=== PATIENT | male | born 1955 | race African-American/Black ===

== ENCOUNTER 2016-08-14 07:41 | Inpatient (IN) | payer MEDICARE, OTHER ==
[~2016-08-14] VITALS: Ht 185.4 cm; Wt 93.2 kg
[~2016-08-14 07:41] MED LIST: AMLO5TAB2 PO; ASPI-482 PO; LANS30TA6 PO; OMEP20CA9 PO; SPIR50TA2 PO; SUCR1TAB PO; TRAM50TA PO; TRAZ50TA15 PO
--- NOTE | 2016-08-14 08:02 | PHYS DOC ---
Past Medical History Past Medical History: Alcoholism, Bipolar, Hypertension, Liver Disease Additional Past Medical Histor: ETOH ABUSE Past Surgical History: Cholecystectomy Additional Past Surgical Histo: RIGHT KNEE ARTHROSCOPY, BACK SURGERY Alcohol Use: Heavy Drug Use: None Adult General Chief Complaint Chief Complaint: CHEST PAIN HPI HPI Patient is a 60 year old male presents to the emergency department EMS. Patient states that around 1:00 this morning he felt as though he was having chest pressure. He states he has a pressure feeling as though somebody is sitting on his chest. He denies any radiation of pain. He does however state that he did break out in a sweat and became diaphoretic denies any nausea or vomiting. Patient does state he has a history of hypertension, hepatitis C, liver issues. Patient states that he did take 4 regular strength aspirins during the episode of having chest pain since 1 AM. Review of Systems Review of Systems Constitutional: Denies fever or chills [] Eyes: Denies change in visual acuity, redness, or eye pain [] HENT: Denies nasal congestion or sore throat [] Respiratory: Denies cough or shortness of breath [] Cardiovascular: No additional information not addressed in HPI [] GI: Denies abdominal pain, nausea, vomiting, bloody stools or diarrhea [] : Denies dysuria or hematuria [] Musculoskeletal: Denies back pain or joint pain [] Integument: Denies rash or skin lesions [] Neurologic: Denies headache, focal weakness or sensory changes [] Current Medications Current Medications Current Medications Medications (Trade) Dose Ordered Sig/[facility] Start Time Stop Time Status Last Admin Dose Admin Nitroglycerin (Nitrostat) 0.4 mg PRN Q5MIN PRN 08/14/16 08:00 08/14/16 08:25 0.4 MG Allergies Allergies Allergies Coded Allergies Type Severity Reaction Last Updated Verified No Known Drug Allergies 02/03/16 No Physical Exam Physical Exam Constitutional: Well developed, well nourished, no acute distress, non-toxic appearance. [] HENT: Normocephalic, atraumatic, bilateral external ears normal, oropharynx moist, no oral exudates, nose normal. [] Eyes: PERRLA, EOMI, conjunctiva normal, no discharge. [] Neck: Normal range of motion, no tenderness, supple, no stridor. [] Cardiovascular:Heart rate regular rhythm, no murmur. Patient does not appear to be diaphoretic at the current time. Lungs & Thorax: Bilateral breath sounds clear to auscultation [] Abdomen: Bowel sounds hypoactive, soft, no tenderness, no masses, no pulsatile masses. Abdomen appears to be round. Skin: Warm, dry, no erythema, no rash. [] Back: No tenderness Extremities: No tenderness, no cyanosis, no clubbing, ROM intact, no edema. Peripheral pulses 2+ cap refill brisk less than 2 seconds. No lower extremity swelling noted. Neurologic: Alert and oriented X 3, normal motor function, normal sensory function, no focal deficits noted. [] Psychologic: Affect normal, judgement normal, mood normal. [] Current Patient Data Vital Signs Vital Signs Date Time Temp Pulse Resp B/P Pulse Ox O2 Delivery O2 Flow Rate FiO2 08/14/16 08:05 92 18 167/102 99 Room Air 08/14/16 07:41 98.1 98.1 Lab Values Laboratory Tests Test 08/14/16 07:48 White Blood Count 4.7x10^3/uL (4.0-11.0) Red Blood Count 3.85x10^6/uL (4.30-5.70) L Hemoglobin 11.0g/dL (13.0-17.5) L Hematocrit 34.8% (39.0-53.0) L Mean Corpuscular Volume 90fL (79-100) Mean Corpuscular Hemoglobin 29pg (25-35) Mean Corpuscular Hemoglobin Concent 32g/dL (31-37) Red Cell Distribution Width 18.6% (11.5-14.5) H Platelet Count 130x10^3/uL (140-400) L Neutrophils (%) (Auto) 40% (31-73) Lymphocytes (%) (Auto) 44% (24-48) Monocytes (%) (Auto) 13% (0-9) H Eosinophils (%) (Auto) 3% (0-3) Basophils (%) (Auto) 1% (0-3) Neutrophils # (Auto) 1.9x10^3uL (1.8-7.7) Lymphocytes # (Auto) 2.0x10^3/uL (1.0-4.8) Monocytes # (Auto) 0.6x10^3/uL (0.0-1.1) Eosinophils # (Auto) 0.1x10^3/uL (0.0-0.7) Basophils # (Auto) 0.0x10^3/uL (0.0-0.2) Sodium Level 140mmol/L (136-145) Potassium Level 4.0mmol/L (3.5-5.1) Chloride Level 103mmol/L (98-107) Carbon Dioxide Level 23mmol/L (21-32) Anion Gap 14 (6-14) Blood Urea Nitrogen 9mg/dL (8-26) Creatinine 1.0mg/dL (0.7-1.3) Estimated GFR (Cockcroft-Gault) 92.5 BUN/Creatinine Ratio 9 (6-20) Glucose Level 115mg/dL (70-99) H Calcium Level 9.0mg/dL (8.5-10.1) Total Bilirubin 0.4mg/dL (0.2-1.0) Aspartate Amino Transferase (AST) 31U/L (15-37) Alanine Aminotransferase (ALT) 26U/L (16-63) Alkaline Phosphatase 106U/L (46-116) Troponin I Quantitative < 0.017ng/mL (0.000-0.055) Total Protein 7.7g/dL (6.4-8.2) Albumin 3.7g/dL (3.4-5.0) Albumin/Globulin Ratio 0.9 (1.0-1.7) L Laboratory Tests 08/14/16 07:48 Laboratory Tests 08/14/16 07:48 EKG EKG EKG completed at 0743 with SR noted HR [address] Waldron NO STEMI noted.[] Radiology/Procedures Radiology/Procedures [] [facility] [address] [place], [place] [id number] IMAGING REPORT Signed PATIENT: PARISA LAND ACCOUNT: [id number] : 1955 LOCATION: ER AGE: 60 SEX: M EXAM STATUS: REG ER ORD. PHYSICIAN: MICHELINE HYATT BRASS POLISHER REASON: chest pressure PROCEDURE: PORTABLE CHEST 1V Indication chest pressure and tightness. A single view of the chest was obtained and is compared to a study 02/02/2016. The heart and pulmonary vessels appear normal. The lungs are clear. Slight elevation of the right hemidiaphragm is noted, similar. A significant change in the appearance of the chest relative to the prior study is not seen. IMPRESSION: No acute finding. DICTATED and SIGNED BY: FRANCESCA LIVE MD DATE: 08/14/16 0843 CC: MICHELINE HYATT APRN; Betty RUIZ MD; NON,STAFF ~ Course & Med Decision Making Course & Med Decision Making Pertinent Labs and Imaging studies reviewed. (See chart for details) 0755 Dr Waldron in to evaluate patient. 0823 Patient continues to have chest pain, second NTG to be given [address] Martinez in regard to patient being admitted as a Telemetry patient with cardiology consult. [] Dragon Disclaimer Dragon Disclaimer This electronic medical record was generated, in whole or in part, using a voice recognition dictation system. Departure Departure Impression: Primary Impression: Chest pain Disposition: ADMITTED INPATIENT Admitting Physician: Muriel Martinez Condition: STABLE Referrals: Betty RUIZ MD (PCP) MICHELINE HYATT APRN Aug 14, 2016 08:02
[2016-08-14 08:03] LABS: BASO % 1 % (0-3); EOS % 3 % (0-3); HEMATOCRIT 34.8 % (39.0-53.0); LYMPH % 44 % (24-48); MEAN CORPUSCULAR HEMOGLOBIN 29 pg (25-35); MEAN CORPUSCULAR HGB CONC 32 g/dL (31-37); MEAN CORPUSCULAR VOLUME 90 fL (79-100); MONO % 13 % (0-9); NEUT % 40 % (31-73); PLATELET COUNT 130 x10^3/uL (140-400); RED BLOOD COUNT 3.85 x10^6/uL (4.30-5.70); RED CELL DISTRIBUTION WIDTH 18.6 % (11.5-14.5); WHITE BLOOD COUNT 4.7 x10^3/uL (4.0-11.0)
[2016-08-14] MEDS: NITROGLYCERIN SUBLINGUAL 0.4 MG BOTTLE OF 25. SL PRN ×2 (08:07→08:25)
[2016-08-14 08:13] LABS: GFR 92.5
[2016-08-14 08:18] LABS: ALBUMIN 3.7 g/dL (3.4-5.0); ALBUMIN/GLOBULIN RATIO 0.9 (1.0-1.7); TOTAL BILIRUBIN 0.4 mg/dL (0.2-1.0); TOTAL PROTEIN 7.7 g/dL (6.4-8.2)
[2016-08-14] MEDS ORDERED: ONDANSETRON PF 4 MG/2 ML VIAL. IV PRN (08:45)
[2016-08-14] MEDS ORDERED: NITROGLYCERIN SUBLINGUAL 0.4 MG BOTTLE OF 25. SL PRN (08:45)
--- NOTE | 2016-08-14 08:47 | RAD ---
Indication chest pressure and tightness. A single view of the chest was obtained and is compared to a study 02/02/2016. The heart and pulmonary vessels appear normal. The lungs are clear. Slight elevation of the right hemidiaphragm is noted, similar. A significant change in the appearance of the chest relative to the prior study is not seen. IMPRESSION: No acute finding.
[2016-08-14] MEDS: MORPHINE SULFATE 2 MG/ML DISP.SYRIN. IV PRN ×2 (08:50→16:59)
[2016-08-14 08:58] LABS: BILIRUBIN,URINE NEGATIVE (NEG); GLUCOSE,URINE NEGATIVE (NEG); NITRITE,URINE NEGATIVE (NEG); PROTEIN,URINE NEGATIVE (NEG-TRACE)
[2016-08-14 09:05] LABS: BARBITURATES NEG (NEG); BENZODIAZEPINES NEG (NEG); CANNABINOIDS NEG (NEG); COCAINE NEG (NEG); METHADONE NEG (NEG); OPIATES NEG (NEG); PHENCYCLIDINE NEG (NEG)
[2016-08-14 09:08] LABS: ETHANOL, URINE POS (NEG)
[2016-08-14 09:14] LABS: BACTERIA,URINE 0 /HPF (0-FEW); RBC,URINE 0 /HPF (0-2); SQUAMOUS EPITHELIAL CELL,UR FEW /LPF; TRICHOMONAS,URINE PRESENT
[2016-08-14 09:25] VITALS: BP 151/88
--- NOTE | 2016-08-14 10:24 | PDOC2 ---
CARDIOLOGY CONSULT NOTE CHEIF COMPLAINT: Chest pressure Problems: HPI: 60 y.o male with chest pressure since this morning. Reports that he had severe chest pressure that was in his epigastric region. Never has had this kind of pain before. Denies any associated LH but did have diaphoresis. Denies any preceding palpitations. No baseline chest pain with activity. No dyspnea. In the past has had erosive esophagitis. CT in the past has suggestive cirrhosis. PMHX: 1. HTN SOCHX: +1ppd, 6-8 beers/day FAMHX: NC CURRENT MEDS: Current Medications Medications (Trade) Dose Ordered Sig/Julio C[facility]ar Start Time Stop Time Status Last Admin Dose Admin Morphine Sulfate 2 mg PRN Q2HR PRN 08/14/16 08:45 08/15/16 08:44 08/14/16 08:50 2 MG Nitroglycerin (Nitrostat) 0.4 mg PRN Q5MIN PRN 08/14/16 08:45 08/15/16 08:44 Ondansetron HCl (Zofran) 4 mg PRN Q8HRS PRN 08/14/16 08:45 08/15/16 08:44 ALLERGIES: Allergies Coded Allergies Type Severity Reaction Last Updated Verified No Known Drug Allergies 02/03/16 No ROS: negative for 03/04 systems reviewed, unless otherwise noted above in HPI. PHYSICAL EXAM: Vital Signs: Vital Signs Date Time Temp Pulse Resp B/P Pulse Ox O2 Delivery O2 Flow Rate FiO2 08/14/16 08:55 99 18 129/70 99 Room Air 08/14/16 07:41 98.1 98.1 Physical Exam: Gen: A/O x3. NAD. CVS: RRR, no m/r/g. Normal vascular exam. PULM: CTAB ABd: Soft, mild epigastric tenderness EXT: No edema. NEURO:No focal deficits. MSK: No trauma PSYCH: Normal affect/mood. DIAGNOSTIC TESTING: Trop neg x 1. Hgb 11 Pos alcohol screen ASSESSMENT: 1. Atypical chest pain 2. Polysubstance abuse 3. HTN history PLAN: 1. Given risk factors, male gender, tobacco abuse and atypical chest pain, will plan for stress prior to dc. 2. Otherwise, plan GI cocktail, defer further GI evaluation to PCP Thanks for consultation. YOUSIF HENDERSON MD Aug 14, 2016 10:23
[2016-08-14] MEDS ORDERED: LIDO:MAALOX:DONNATAL 1:1:1 15 ML SINGLE DOSE SWSW ONE (10:30)
[2016-08-14 10:52] VITALS: BP 130/76
[2016-08-14] MEDS: SPIRONOLACTONE 25 MG TABLET PO SCH (11:00)
[2016-08-14] MEDS: AMLODIPINE BESYLATE 5 MG TABLET PO SCH (11:00)
--- NOTE | 2016-08-14 11:30 | EKG ---
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
[2016-08-14] MEDS ORDERED: TRAMADOL 50 MG TABLET. PO PRN (12:15)
--- NOTE | 2016-08-14 12:22 | PDOC ---
PROGRESS NOTES Subjective Subjective Patient reports substernal and epigastric pain is much improved. Objective Objective Vital Signs Date Time Temp Pulse Resp B/P Pulse Ox O2 Delivery O2 Flow Rate FiO2 08/14/16 10:52 98.0 94 20 130/76 95 Room Air 98.0 Physical Exam Abdomen: Normal bowel sounds, Soft, No tenderness Heart: Regular rate Extremities: No edema General: Alert, Oriented X3, No acute distress Lungs: Other (BS moderately decreased throughout, otherwise CTA) Assessment Assessment Problems Medical Problems: (1) Chest pain Status: Acute Plan Plan of Care 1. Atypical chest pain - has improved from admission. First Troponin is negative. Agree with stress test as patient does have several risk factors for heart disease and no recent testing for this. Patient also has history of gastritis seen on EGD 02/04. States he has been taking the Omeprazole at least once daily recently. Start Protonix while here, consider further GI evaluation if symptoms persist. 2. HTN - continue home meds. 3. Hepatitis C - patient has history of this. Reports he has completed treatment for this with [facility]. He was to have lab checked for Hep C quantitative but was unable to have this drawn at our office due to an outstanding balance with [facility]. Will order this while he is here. LFT's are not elevated, even though he has continued to drink alcohol almost daily. 4. anemia - Hgb is mildly low, similar levels were seen during his admission here last year. Will check anemia labs. Comment Review of Relevant I have reviewed the following items stewart (where applicable) has been applied. Labs Laboratory Tests Test 08/14/16 07:48 08/14/16 08:40 White Blood Count 4.7x10^3/uL (4.0-11.0) Red Blood Count 3.85x10^6/uL (4.30-5.70) Hemoglobin 11.0g/dL (13.0-17.5) Hematocrit 34.8% (39.0-53.0) Mean Corpuscular Volume 90fL (79-100) Mean Corpuscular Hemoglobin 29pg (25-35) Mean Corpuscular Hemoglobin Concent 32g/dL (31-37) Red Cell Distribution Width 18.6% (11.5-14.5) Platelet Count 130x10^3/uL (140-400) Neutrophils (%) (Auto) 40% (31-73) Lymphocytes (%) (Auto) 44% (24-48) Monocytes (%) (Auto) 13% (0-9) Eosinophils (%) (Auto) 3% (0-3) Basophils (%) (Auto) 1% (0-3) Neutrophils # (Auto) 1.9x10^3uL (1.8-7.7) Lymphocytes # (Auto) 2.0x10^3/uL (1.0-4.8) Monocytes # (Auto) 0.6x10^3/uL (0.0-1.1) Eosinophils # (Auto) 0.1x10^3/uL (0.0-0.7) Basophils # (Auto) 0.0x10^3/uL (0.0-0.2) Sodium Level 140mmol/L (136-145) Potassium Level 4.0mmol/L (3.5-5.1) Chloride Level 103mmol/L (98-107) Carbon Dioxide Level 23mmol/L (21-32) Anion Gap 14 (6-14) Blood Urea Nitrogen 9mg/dL (8-26) Creatinine 1.0mg/dL (0.7-1.3) Estimated GFR (Cockcroft-Gault) 92.5 BUN/Creatinine Ratio 9 (6-20) Glucose Level 115mg/dL (70-99) Calcium Level 9.0mg/dL (8.5-10.1) Total Bilirubin 0.4mg/dL (0.2-1.0) Aspartate Amino Transf (AST/SGOT) 31U/L (15-37) Alanine Aminotransferase (ALT/SGPT) 26U/L (16-63) Alkaline Phosphatase 106U/L (46-116) Troponin I Quantitative < 0.017ng/mL (0.000-0.055) Total Protein 7.7g/dL (6.4-8.2) Albumin 3.7g/dL (3.4-5.0) Albumin/Globulin Ratio 0.9 (1.0-1.7) Urine Collection Type Unknown Urine Color Yellow Urine Clarity Clear Urine pH 6.0 Urine Specific [place] 1.010 Urine Protein Negativemg/dL (NEG-TRACE) Urine Glucose (UA) Negativemg/dL (NEG) Urine Ketones (Stick) Negativemg/dL (NEG) Urine Blood Negative (NEG) Urine Nitrite Negative (NEG) Urine Bilirubin Negative (NEG) Urine Urobilinogen Dipstick 1.0mg/dL (0.2 mg/dL) Urine Leukocyte Esterase Small (NEG) Urine RBC 0/HPF (0-2) Urine WBC 5-10/HPF (0-4) Urine Squamous Epithelial Cells Few/LPF Urine Bacteria 0/HPF (0-FEW) Urine Hyaline Casts Few/HPF Urine Mucus Slight/LPF Urine Trichomonas Present Urine Opiates Screen Neg (NEG) Urine Methadone Screen Neg (NEG) Urine Barbiturates Neg (NEG) Urine Phencyclidine Screen Neg (NEG) Urine Amphetamine/Methamphetamine Neg (NEG) Urine Benzodiazepines Screen Neg (NEG) Urine Cocaine Screen Neg (NEG) Urine Cannabinoids Screen Neg (NEG) Urine Ethyl Alcohol Pos (NEG) Laboratory Tests Test 08/14/16 07:48 08/14/16 08:40 White Blood Count 4.7x10^3/uL (4.0-11.0) Red Blood Count 3.85x10^6/uL (4.30-5.70) Hemoglobin 11.0g/dL (13.0-17.5) Hematocrit 34.8% (39.0-53.0) Mean Corpuscular Volume 90fL (79-100) Mean Corpuscular Hemoglobin 29pg (25-35) Mean Corpuscular Hemoglobin Concent 32g/dL (31-37) Red Cell Distribution Width 18.6% (11.5-14.5) Platelet Count 130x10^3/uL (140-400) Neutrophils (%) (Auto) 40% (31-73) Lymphocytes (%) (Auto) 44% (24-48) Monocytes (%) (Auto) 13% (0-9) Eosinophils (%) (Auto) 3% (0-3) Basophils (%) (Auto) 1% (0-3) Neutrophils # (Auto) 1.9x10^3uL (1.8-7.7) Lymphocytes # (Auto) 2.0x10^3/uL (1.0-4.8) Monocytes # (Auto) 0.6x10^3/uL (0.0-1.1) Eosinophils # (Auto) 0.1x10^3/uL (0.0-0.7) Basophils # (Auto) 0.0x10^3/uL (0.0-0.2) Sodium Level 140mmol/L (136-145) Potassium Level 4.0mmol/L (3.5-5.1) Chloride Level 103mmol/L (98-107) Carbon Dioxide Level 23mmol/L (21-32) Anion Gap 14 (6-14) Blood Urea Nitrogen 9mg/dL (8-26) Creatinine 1.0mg/dL (0.7-1.3) Estimated GFR (Cockcroft-Gault) 92.5 BUN/Creatinine Ratio 9 (6-20) Glucose Level 115mg/dL (70-99) Calcium Level 9.0mg/dL (8.5-10.1) Total Bilirubin 0.4mg/dL (0.2-1.0) Aspartate Amino Transf (AST/SGOT) 31U/L (15-37) Alanine Aminotransferase (ALT/SGPT) 26U/L (16-63) Alkaline Phosphatase 106U/L (46-116) Troponin I Quantitative < 0.017ng/mL (0.000-0.055) Total Protein 7.7g/dL (6.4-8.2) Albumin 3.7g/dL (3.4-5.0) Albumin/Globulin Ratio 0.9 (1.0-1.7) Urine Collection Type Unknown Urine Color Yellow Urine Clarity Clear Urine pH 6.0 Urine Specific [place] 1.010 Urine Protein Negativemg/dL (NEG-TRACE) Urine Glucose (UA) Negativemg/dL (NEG) Urine Ketones (Stick) Negativemg/dL (NEG) Urine Blood Negative (NEG) Urine Nitrite Negative (NEG) Urine Bilirubin Negative (NEG) Urine Urobilinogen Dipstick 1.0mg/dL (0.2 mg/dL) Urine Leukocyte Esterase Small (NEG) Urine RBC 0/HPF (0-2) Urine WBC 5-10/HPF (0-4) Urine Squamous Epithelial Cells Few/LPF Urine Bacteria 0/HPF (0-FEW) Urine Hyaline Casts Few/HPF Urine Mucus Slight/LPF Urine Trichomonas Present Urine Opiates Screen Neg (NEG) Urine Methadone Screen Neg (NEG) Urine Barbiturates Neg (NEG) Urine Phencyclidine Screen Neg (NEG) Urine Amphetamine/Methamphetamine Neg (NEG) Urine Benzodiazepines Screen Neg (NEG) Urine Cocaine Screen Neg (NEG) Urine Cannabinoids Screen Neg (NEG) Urine Ethyl Alcohol Pos (NEG) Medications Current Medications Nitroglycerin (Nitrostat) 0.4 mg PRN Q5MIN PRN SL CHEST PAIN Last administered on 08/14/16 08:25; Start 08/14/16 at 08:00 Ondansetron HCl (Zofran) 4 mg PRN Q8HRS PRN IV NAUSEA/VOMITING; Start 08/14/16 at 08:45; Stop 08/15/16 at 08:44 Morphine Sulfate 2 mg PRN Q2HR PRN IV PAIN Last administered on 08/14/16 08:50 ; Start 08/14/16 at 08:45; Stop 08/15/16 at 08:44 Nitroglycerin (Nitrostat) 0.4 mg PRN Q5MIN PRN SL CHEST PAIN; Start 08/14/16 at 08:45; Stop 08/15/16 at 08:44 Multi-Ingredient Mouthwash/Gargle (Gi Cocktail Single Dose) 15 ml 1X ONCE SWSW ; Start 08/14/16 at 10:30; Stop 08/14/16 at 10:36; Status DC Spironolactone (Aldactone) 25 mg DAILY PO ; Start 08/14/16 at 11:00 Amlodipine Besylate (Norvasc) 5 mg DAILY PO ; Start 08/14/16 at 11:00 Active Scripts Active Tramadol Hcl 50 Mg Tablet 1 Tab PO BID PRN Reported Omeprazole 20 Mg Capsule.dr 1 Cap PO BID Sucralfate 1 Gm Tablet 1 Tab PO QID Amlodipine Besylate 5 Mg Tablet 5 Mg PO DAILY Trazodone Hcl 50 Mg Tablet 1 Tab PO QHS Spironolactone 50 Mg Tablet 1 Tab PO DAILY Vitals/I & O Vital Sign - Last 24 Hours 08/14/16 08/14/16 08/14/16 08/14/16 07:41 08:05 08:07 08:15 Temp 98.1 98.1 Pulse 96 92 92 92 Resp 18 18 16 B/P 154/87 167/102 167/102 133/70 Pulse Ox 99 99 99 O2 Delivery Room Air Room Air Room Air 08/14/16 08/14/16 08/14/16 08/14/16 08:25 08:30 08:55 09:25 Temp 97.5 97.5 Pulse 101 99 99 100 Resp 16 18 20 B/P 159/82 159/82 129/70 151/88 Pulse Ox 99 99 99 O2 Delivery Room Air Room Air Room Air 08/14/16 10:52 Temp 98.0 98.0 Pulse 94 Resp 20 B/P 130/76 Pulse Ox 95 O2 Delivery Room Air BILL MERINO MD Aug 14, 2016 12:22
[2016-08-14] MEDS: SUCRALFATE 1 GM TABLET. PO SCH ×3 (12:59→20:28)
[2016-08-14] MEDS: PANTOPRAZOLE 40 MG TABLET. PO SCH (12:59)
[2016-08-14] MEDS ORDERED: SPIRONOLACTONE 25 MG TABLET PO SCH (13:00)
--- NOTE | 2016-08-14 13:30 | HP ---
ADMIT DATE: 08/14/2016 CHIEF COMPLAINT: Chest pain. HISTORY OF PRESENT ILLNESS: The patient is a 60-year-old male with a history of gastritis and alcohol abuse who presented to the Emergency Room with the above complaint. He reported the onset of severe substernal and epigastric pain earlier on the day of admission. The pain began somewhat suddenly and persisted. He had a feeling of pressure as if something was sitting on his chest. When the symptoms persisted, he came to the Emergency Room. Initial evaluation there included a troponin which was within normal limits and an EKG without acute ischemic change. Cardiology was consulted and the patient was admitted for further treatment. PAST MEDICAL HISTORY: Gastritis, hypertension, hepatitis C, alcohol abuse and chronic musculoskeletal pain. PAST SURGICAL HISTORY: Cholecystectomy. ALLERGIES: The patient has no known drug allergies. HOME MEDICATIONS: Amlodipine 5 mg daily, omeprazole 20 mg b.i.d. The patient reports he takes this once daily and sometimes twice daily, spironolactone 50 mg daily, Carafate 1 g, the patient takes this usually once daily, tramadol 50 mg b.i.d. p.r.n. FAMILY HISTORY: Noncontributory. SOCIAL HISTORY: The patient is single. He is disabled. He smokes cigarettes about 1 pack daily. He has 3 or 4 beers several times weekly, but not daily per his report. REVIEW OF SYSTEMS: The patient denies fever or chills. He denies cough or shortness of air. He denies other episodes of chest pain. He has some mild heartburn at times, but has not had any other abdominal pain or problems with his bowels. He reports that he completed treatment for his hepatitis C with [facility] as prescribed by Dr. Preciado. The patient was to have his labs checked for quantitative hepatitis C after completing his treatment, but was unable to have this lab drawn at our office due to an outstanding balance with [facility]. He does continue to drink alcohol, although he knows that this is not advised. The patient has a history of some depression or other psychiatric problems. He used to take trazodone for this. He reports that he stopped taking this a while ago, as he did not feel that he needs it. He has had some recent emotional upset with the incarceration of his fiancee. PHYSICAL EXAMINATION: GENERAL: The patient is alert and oriented x 3, resting comfortably in bed, in no acute distress. HEENT: PERRL, EOMI, sclerae clear. Oropharynx: Mucous membranes moist. NECK: Supple without lymphadenopathy. CHEST: Breath sounds decreased throughout, but otherwise clear to auscultation. No wheezing or cough. CARDIOVASCULAR: Regular rhythm without murmur. There is no chest wall tenderness to palpation. ABDOMEN: Soft, nontender, normoactive bowel sounds are present. EXTREMITIES: Without edema. ASSESSMENT AND PLAN: 1. Atypical chest pain. This has improved from admission after the patient has been given nitroglycerin and morphine. His first troponin is negative. Dr. Oliver has seen the patient and plans a nuclear stress test. The patient does have several risk factors for coronary artery disease and has had no recent cardiac evaluation; however, the patient does have a history of gastritis and his discomfort is at least partially located in the epigastric area. We will start the patient on full dose of Protonix daily while he is here and also resume Carafate q.i.d. We will consider further GI evaluation if his symptoms persist and the cardiac evaluation is unremarkable. 2. Hypertension. Continue home medications. 3. Hepatitis C. The patient has completed treatment for this with [facility]. Lab to check hepatitis C quantitative has been ordered, but apparently has to be approved by the slab puller before it can be drawn. The patient's transaminases are within normal limits on his admission lab. 4. Anemia. The patient has a history of some mild anemia. His hemoglobin is 11.0 today; it was 11.4 on his admission last year. His MCV is within the normal range. Further lab for evaluation of anemia has been ordered. BILL MERINO MD DR: NHI/sri JOB#: [id number] / [id number] PILAR
[2016-08-14 15:00] VITALS: BP 121/68
[2016-08-14 19:27] VITALS: BP 140/79
[2016-08-14 23:19] VITALS: BP 133/80
[2016-08-15 02:48] VITALS: BP 109/60
[2016-08-15 05:09] LABS: BASO % 1 % (0-3); EOS % 3 % (0-3); HEMATOCRIT 33.1 % (39.0-53.0); HEMOGLOBIN 10.7 g/dL (13.0-17.5); LYMPH # 1.5 x10^3/uL (1.0-4.8); LYMPH % 40 % (24-48); MEAN CORPUSCULAR HEMOGLOBIN 29 pg (25-35); MEAN CORPUSCULAR HGB CONC 32 g/dL (31-37); MEAN CORPUSCULAR VOLUME 91 fL (79-100); MONO % 11 % (0-9); NEUT % 45 % (31-73); PLATELET COUNT 116 x10^3/uL (140-400); RED BLOOD COUNT 3.64 x10^6/uL (4.30-5.70); RED CELL DISTRIBUTION WIDTH 18.9 % (11.5-14.5); WHITE BLOOD COUNT 3.9 x10^3/uL (4.0-11.0)
[2016-08-15 05:12] LABS: CALCIUM 9.1 mg/dL (8.5-10.1); CREATININE 1.1 mg/dL (0.7-1.3); GFR 82.9
[2016-08-15] MEDS: SUCRALFATE 1 GM TABLET. PO SCH ×3 (07:30→16:44)
[2016-08-15 07:45] VITALS: BP 136/76
[2016-08-15] MEDS ORDERED: METRONIDAZOLE 500 MG TABLET. PO ONE (08:30)
[2016-08-15 09:34] LABS: FOLATE 13.91 ng/ml (3.2-20.0)
[2016-08-15] MEDS: AMLODIPINE BESYLATE 5 MG TABLET PO SCH (10:15)
[2016-08-15] MEDS: PANTOPRAZOLE 40 MG TABLET. PO SCH (10:19)
[2016-08-15] MEDS: SPIRONOLACTONE 25 MG TABLET PO SCH (10:19)
[2016-08-15 11:00] VITALS: BP 134/72
--- NOTE | 2016-08-15 12:02 | RAD ---
APPROVED REPORT Test Type: Exercise Stress Nurse/Tech: Kati Christensen R.N. Test Indications: chest tightness Cardiac History: Family history, Hypertension, smoker Medications: See Electronic Medical Record Medical History: See Electronic Medical Record Resting ECG: NSR Resting Heart Rate: 93 bpm Resting Blood Pressure: 128/78mmHg Pretest Chest Pain: No chest pain Nurse/Tech Notes S1S2, lungs sound clear Consent: The procedure was explained to the patient in lay terms. Informed consent was witnessed. Rafita eout was entered into [employer]. History and Stress Test performed by Kati Christensen R.N. Stress Symptoms Dyspnea, Claudication Chest pain atypical of angina occurred (Severity pressure in mid chest rated at 4 , about 4 min. min duration). POST EXERCISE Reason for Termination: Reached target heart rate Target HR: 136 Max HR: 160 bpm Exercise duration: 5 min min:sec, 2 Stage Max Blood Pressure: 142/80mmHg Blood Pressure response to exercise: Normal blood pressure response during stress. Chest Pain: Yes. rated at 4 at end of exercise Arrhythmia: Yes. occ PVC ST Change: Yes. st changes in v leads INTERPRETATION Stress EKG Conclusion: Baseline EKG showed sinus rhythm. No ischemic changes at peak stress. No arr hythmias. Imaging Protocol IMAGE PROTOCOL: Rest Tc-99m/stress Tc-99m 1 day Rest: Stress: Viability: Radiopharm.Tc99m TinocquqtWe62j Sestamibi Jamw92tLy 34.4mCi Duration 15min. 10min. Img Date 08/15/2016 08/15/2016 Inj-Img Thli08hrn. 60min. Rest Admin Site:IV - Left AntecubitalAdministrator:RT Wilfredo (R)(N) Stress Admin Site: IV - Left AntecubitalAdministrator: ISAI Gannon STRESS DATA End Diast. Vol.73.0mlAv. Heart Rate95.0bpm End Syst. Vol.7.0mlCO Index BSA0.0L/min Myocardial Trjg672.0gEject. Kudioqkz32.0% Stress Rates Pk. Fill Rate3.58EDV/secLVtime Pk. Fill 158.57msec Pk. Empty Rate5.72ESV/secLVtime Pk. Nhygs601.97msec 1/3 Pk. Fill1.68EDV/sec Stress Scores Regional WT1.00Summed WT4.00 Regional WM0.00Summed WM0.00 Study quality was good. Left Ventricular size was Normal at Rest and Stress. Lung uptake was Normal. Left Ventricular ejection fraction is >80%. The rest and stress images show normal perfusion, normal contraction and thickening. LV Perf. Quant 17 Seg. SSS0.00 17 Seg. SRS0.00 17 Seg. SDS0.00 Stress Defect Extent (% LAD)0.00Rest Defect Extent (% LAD)0.00Rev. Defect Extent (% LAD)0.00 Stress Defect Extent (% LCX) 0.00Rest Defect Extent (% LCX)0.00Rev. Defect Extent (% LCX)0.00 Stress Defect Extent (% RCA)0.00Rest Defect Extent (% RCA)0.00Rev. Defect Extent (% RCA)0.00 Stress Defect Extent (% ANNABEL)0.00Rest Defect Extent (% ANNABEL)0.00Rev. Defect Extent (% ANNABEL)0.00 Conclusion 1. Treadmill exercise cardioisotope stress test did not show any evidence of ischemia or infarct. 2. Normal left ventricular systolic function with ejection fraction calculated at >80%. 3. Patient had good activity tolerance. Low risk for cardiac events.
--- NOTE | 2016-08-15 13:25 | PDOC ---
CARDIO Progress Notes Date and Time Date of Service 08/15/2016 Time of Evaluation 1322 Subjective Subjective: No Chest Pain, No shortness of breath, No Palpitations, No Dizziness Vitals Vitals Vital Signs Date Time Temp Pulse Resp B/P Pulse Ox O2 Delivery O2 Flow Rate FiO2 08/15/16 11:00 97.8 91 20 134/72 98 Room Air 97.8 Weight Weight [ ] Input and Output Intake and Output Intake and Output 08/15/16 07:00 Intake Total 900 ml Balance 900 ml Intake Oral 900 ml # Voids 7 Laboratory Labs Laboratory Tests Test 08/14/16 14:10 08/14/16 19:55 08/15/16 04:06 Troponin I Quantitative < 0.017ng/mL (0.000-0.055) < 0.017ng/mL (0.000-0.055) White Blood Count 3.9x10^3/uL (4.0-11.0) Red Blood Count 3.64x10^6/uL (4.30-5.70) Hemoglobin 10.7g/dL (13.0-17.5) Hematocrit 33.1% (39.0-53.0) Mean Corpuscular Volume 91fL (79-100) Mean Corpuscular Hemoglobin 29pg (25-35) Mean Corpuscular Hemoglobin Concent 32g/dL (31-37) Red Cell Distribution Width 18.9% (11.5-14.5) Platelet Count 116x10^3/uL (140-400) Neutrophils (%) (Auto) 45% (31-73) Lymphocytes (%) (Auto) 40% (24-48) Monocytes (%) (Auto) 11% (0-9) Eosinophils (%) (Auto) 3% (0-3) Basophils (%) (Auto) 1% (0-3) Neutrophils # (Auto) 1.7x10^3uL (1.8-7.7) Lymphocytes # (Auto) 1.5x10^3/uL (1.0-4.8) Monocytes # (Auto) 0.4x10^3/uL (0.0-1.1) Eosinophils # (Auto) 0.1x10^3/uL (0.0-0.7) Basophils # (Auto) 0.0x10^3/uL (0.0-0.2) Sodium Level 140mmol/L (136-145) Potassium Level 4.0mmol/L (3.5-5.1) Chloride Level 104mmol/L (98-107) Carbon Dioxide Level 26mmol/L (21-32) Anion Gap 10 (6-14) Blood Urea Nitrogen 12mg/dL (8-26) Creatinine 1.1mg/dL (0.7-1.3) Estimated GFR (Cockcroft-Gault) 82.9 Glucose Level 124mg/dL (70-99) Calcium Level 9.1mg/dL (8.5-10.1) Physical Exam HEENT: Neck Supple W Full Motion Chest: Symmetric LUNGS: Clear to Auscultation Heart: S1S2, no murmurs, other (tele: SR) Extremities: No Edema Neurology: alert, oriented, follow commands Assessment Assessment 1 chest pain/epigastric pain MPI without evidence of ischemia; low risk study 2. ? GERD per PCP Agreeable with discharge. No followup with cardiology needed. ALEKSANDRA NAILS APRN Aug 15, 2016 13:25
--- NOTE | 2016-08-15 17:14 | PDOC ---
Provider Note Provider Note discharge dictated # [id number] Betty RUIZ MD Aug 15, 2016 17:14
--- NOTE | 2016-08-15 21:54 | DS ---
DATE OF DISCHARGE: 08/15/2016 ADMISSION DIAGNOSIS: Chest pain. DISCHARGE DIAGNOSIS: Chest pain, low risk for cardiac etiology, likely from gastroesophageal reflux disease. HISTORY AND HOSPITAL COURSE: A 60-year-old -[place] Citizen male with a history of gastritis and alcohol use who finished [facility] for hepatitis C who had the onset of severe substernal/epigastric pain on Monday. He felt like there was a pressure in his chest like someone was sitting on his chest. He came to the Emergency Room late that evening and was admitted early Monday morning. His cardiac evaluation was unremarkable including a normal EKG and troponin. He had a stress MPI today showing low-risk changes. He is therefore being released home. Additional findings while here though, he is anemic with hemoglobin of 10.7, an iron level low at 47 with a normal B12 and folate. Urine showed Trichomonas present. Toxicology screen was positive for alcohol. Chest x-ray was unremarkable and stress test, it was read as no evidence of ischemia or infarct with normal left ventricular systolic function with an ejection fraction greater than 80%. The patient had good activity tolerance and is thought to be low risk for future cardiac events. His diet will be cardiac. Activity as tolerated. He did have HCV quant drawn, results are pending. He will follow up for that result. W Tonya RUIZ MD DR: ROCÍO/sri JOB#: [id number] / [id number]
[2016-08-17 20:18] LABS: HCV ULTRA QUANT PCR HCV Not Detected IU/mL (.)
== END 2016-08-15 17:45 | disposition home or self-care (01) | DRG 392 ==
LOC: ER 07:41 → 2 NORTH 08:06
PROVIDERS: ADMIT Family Medicine; ATTEND Family Medicine
DX: K21.9 Gastro-esophageal reflux disease without esophagitis (principal); A59.9 Trichomoniasis, unspecified; D64.9 Anemia, unspecified; F17.210 Nicotine dependence, cigarettes, uncomplicated; I10 Essential (primary) hypertension; F10.20 Alcohol dependence, uncomplicated; G89.29 Other chronic pain; Z90.49 Acquired absence of other specified parts of digestive tract
CPT/HCPCS: 36415; 71010; 78452; 80048; 80053; 81001; 82607; 82728; 82746; 83540; 84484; 85027; 87086; 87521; 93005; 93017; 96374; 96376; 99406; A9500; G0481; J2270; 99285-25

== ENCOUNTER 2016-10-26 03:42 | Emergency (ER) | payer MEDICARE, OTHER ==
[~2016-10-26] VITALS: Ht 185.4 cm; Wt 93.0 kg
--- NOTE | 2016-10-26 03:56 | PHYS DOC ---
Past Medical History Past Medical History: Alcoholism, Bipolar, Hypertension, Liver Disease Additional Past Medical Histor: ETOH ABUSE Past Surgical History: Cholecystectomy Additional Past Surgical Histo: RIGHT KNEE ARTHROSCOPY, BACK SURGERY Alcohol Use: Heavy Drug Use: None Adult General Chief Complaint Chief Complaint: HEADACHE HPI HPI Patient is a 61 year old M who presents with with a headache for the past 3 days. Patient states the headache has been constant with no associated vision changes or difficulty walking. Patient does not remember what he was doing when the headache occurred. Patient states he has had headaches like this before in the past however they have been when he's had head trauma in this time he denies any head trauma. Patient states he tried to go to bed tonight and the pain was constant therefore he called EMS to come the emergency room for further evaluation. Patient denies any nausea/vomiting/diarrhea. Patient denies any fevers. Patient denies any chest pain or shortness of breath. Patient is no other complaints. Pertinent exam findings: Cranial nerves II through XII are grossly intact without any focal neurological deficits ED course: Patient was seen and examined upon arrival CBC, BMP, CT angiogram head and neck were ordered on the EKG, 50 g of fentanyl, 10 mg of Reglan and 1 L normal saline bolus were ordered 0605: On reexamination patient states his headache is almost completely resolved and he feels much better patient states he is ready to go home and wants to follow up his PCP and does not want admitted to the hospital. Pertinent results: 0347: EKG shows sinus tach rate of [address] angiogram head and neck unremarkable MDM: After reviewing the chart, CC/HPI/PMH, physical exam, [lab results], [ radiological results], do not believe the patient has acute intracranial process warranting further workup and/or admission at this time. The low suspicion for subarachnoid hemorrhage and do not believe an LP is warranted at this time. On reexamination the patient's headache has almost resolved patient feels much better like to go home. I believe the patient is stable for discharge. Recommended patient follow up with his PCP in one to 2 days. Additional verbal discharge instructions were provided to the patient and that if symptoms get worse or any new symptoms arise that are worrisome to the patient he is to return to the emergency room immediately Review of Systems Review of Systems GEN: Headache HEENT: Denies blurred vision, sore throat CV: Denies chest pain RESP: Denies shortness of air, cough GI: Denies n/v/d NEURO: Denies confusion, dizziness MSK: Denies weakness, joint pain/swelling Current Medications Current Medications Current Medications Medications (Trade) Dose Ordered Sig/Julio César Start Time Stop Time Status Last Admin Dose Admin Fentanyl Citrate (Fentanyl 2ml Vial) 50 mcg 1X ONCE 10/26/16 04:00 10/26/16 04:02 DC 10/26/16 04:20 50 MCG Info (Do NOT chart on this entry -- for MONITORING) 1 each PRN DAILY PRN 10/26/16 04:15 10/28/16 04:14 Iohexol (Omnipaque 300 Mg/ml) 75 ml 1X ONCE 10/26/16 04:15 10/26/16 04:16 DC 10/26/16 05:00 75 ML Metoclopramide HCl (Reglan) 10 mg 1X ONCE 10/26/16 04:00 10/26/16 04:02 DC 10/26/16 04:20 10 MG Sodium Chloride 1,000 ml @ 1,000 mls/hr 1X ONCE 10/26/16 04:00 10/26/16 04:59 DC 10/26/16 04:00 1,000 MLS/HR Allergies Allergies Allergies Coded Allergies Type Severity Reaction Last Updated Verified No Known Drug Allergies 02/03/16 No Physical Exam Physical Exam GEN.: No apparent distress. Alert and oriented. HEENT: Head is normocephalic, atraumatic NECK: Supple. LUNGS: CTAB. HEART: RRR, S1, S2 present. Peripheral pulses intact ABDOMEN: Soft, nontender. Positive bowel sounds. EXTREMITIES: Without any cyanosis. NEUROLOGIC: Normal speech, normal tone, cranial nerves II through XII are grossly intact without any focal neurological deficits PSYCHIATRIC: Normal affect, normal mood. SKIN: No ulcerations Current Patient Data Vital Signs Vital Signs Date Time Temp Pulse Resp B/P (MAP) Pulse Ox O2 Delivery O2 Flow Rate FiO2 10/26/16 04:20 20 10/26/16 03:51 99.3 111 140/96 (111) 95 Room Air 99.3 Lab Values Laboratory Tests Test 10/26/16 03:55 10/26/16 04:20 White Blood Count 7.2 x10^3/uL (4.0-11.0) Red Blood Count 3.86 x10^6/uL (4.30-5.70) L Hemoglobin 10.8 g/dL (13.0-17.5) L Hematocrit 33.2 % (39.0-53.0) L Mean Corpuscular Volume 86 fL (79-100) Mean Corpuscular Hemoglobin 28 pg (25-35) Mean Corpuscular Hemoglobin Concent 33 g/dL (31-37) Red Cell Distribution Width 19.1 % (11.5-14.5) H Platelet Count 145 x10^3/uL (140-400) Neutrophils (%) (Auto) 56 % (31-73) Lymphocytes (%) (Auto) 31 % (24-48) Monocytes (%) (Auto) 11 % (0-9) H Eosinophils (%) (Auto) 2 % (0-3) Basophils (%) (Auto) 1 % (0-3) Neutrophils # (Auto) 4.0 x10^3uL (1.8-7.7) Lymphocytes # (Auto) 2.2 x10^3/uL (1.0-4.8) Monocytes # (Auto) 0.8 x10^3/uL (0.0-1.1) Eosinophils # (Auto) 0.1 x10^3/uL (0.0-0.7) Basophils # (Auto) 0.0 x10^3/uL (0.0-0.2) Sodium Level 140 mmol/L (136-145) Potassium Level 3.8 mmol/L (3.5-5.1) Chloride Level 105 mmol/L (98-107) Carbon Dioxide Level 24 mmol/L (21-32) Anion Gap 11 (6-14) Blood Urea Nitrogen 6 mg/dL (8-26) L Creatinine 1.1 mg/dL (0.7-1.3) Estimated GFR (Cockcroft-Gault) 82.6 Glucose Level 128 mg/dL (70-99) H Calcium Level 8.6 mg/dL (8.5-10.1) Ethyl Alcohol Level < 10 mg/dL (0-10) Laboratory Tests 10/26/16 03:55 Laboratory Tests 10/26/16 04:20 EKG EKG Sinus tach rate of 113 no STEMI [] Radiology/Procedures Radiology/Procedures CT angiogram of the head and neck: IMPRESSION: Mucosal disease in the paranasal sinuses with bilateral fluid levels in the maxillary antra. No acute intracranial abnormality seen. No intracranial vascular abnormality evident. Mild narrowing at the origin of the left vertebral artery. No hemodynamically significant stenosis in the carotid arterial systems.[] Course & Med Decision Making Course & Med Decision Making Pertinent Labs and Imaging studies reviewed. (See chart for details) [] Dragon Disclaimer Dragon Disclaimer This electronic medical record was generated, in whole or in part, using a voice recognition dictation system. Departure Departure Impression: Primary Impression: Headache Disposition: 01 HOME, SELF-CARE Condition: IMPROVED Referrals: MATTHEW RUIZ MD (PCP) Patient Instructions: General Headache Without Cause Additional Instructions: Please follow up with her family doctor in next 1-2 days return if symptoms increase GIFTY FREEDMAN DO Oct 26, 2016 03:56
[2016-10-26] MEDS ORDERED: IV NORMAL SALINE 1000ML BAG 1,000 ML IV ONE (04:00)
[2016-10-26] MEDS ORDERED: METOCLOPRAMIDE HCL 10 MG/2 ML VIAL. IV ONE (04:00)
[2016-10-26] MEDS ORDERED: fentaNYL PF VIAL 100 MCG/2 ML VIAL IV ONE (04:00)
[2016-10-26 04:04] LABS: BASO % 1 % (0-3); EOS % 2 % (0-3); HEMATOCRIT 33.2 % (39.0-53.0); HEMOGLOBIN 10.8 g/dL (13.0-17.5); LYMPH # 2.2 x10^3/uL (1.0-4.8); LYMPH % 31 % (24-48); MEAN CORPUSCULAR HEMOGLOBIN 28 pg (25-35); MEAN CORPUSCULAR HGB CONC 33 g/dL (31-37); MEAN CORPUSCULAR VOLUME 86 fL (79-100); MONO % 11 % (0-9); NEUT % 56 % (31-73); PLATELET COUNT 145 x10^3/uL (140-400); RED BLOOD COUNT 3.86 x10^6/uL (4.30-5.70); RED CELL DISTRIBUTION WIDTH 19.1 % (11.5-14.5); WHITE BLOOD COUNT 7.2 x10^3/uL (4.0-11.0)
[2016-10-26] MEDS ORDERED: IOHEXOL 300 MG/ML 75 ML VIAL IV ONE (04:15)
[2016-10-26] MEDS ORDERED: CONTRAST GIVEN MC PRN (04:15)
[2016-10-26 04:38] LABS: CALCIUM 8.6 mg/dL (8.5-10.1); CREATININE 1.1 mg/dL (0.7-1.3); GFR 82.6; POTASSIUM 3.8 mmol/L (3.5-5.1)
--- NOTE | 2016-10-26 05:53 | RAD ---
CT angiogram head and neck with contrast: Reason for examination: Headache for 3 days. Helical images were obtained through the head and neck with intravenous administration of 75 cc Omnipaque 350 using angiographic protocol. 3-D MIPS reconstruction was performed in sagittal and coronal planes and volume rendered images were obtained. Exposure: One or more of the following individualized dose reduction techniques were utilized for this examination: 1. Automated exposure control 2. Adjustment of the mA and/or kV according to patient size 3. Use of iterative reconstruction technique. The ventricular systems are symmetric and not abnormally dilated. No midline shift is seen. There is no evidence of intracranial hemorrhage, infarct, mass or edema. No gross abnormalities are seen at the orbits. There are fluid levels in the maxillary antra bilaterally as well as mucosal disease in the maxillary, sphenoid and left frontal sinus and ethmoid air cells. There appears to be normal appearance to the intracranial carotid arteries. There appears be normal blood flow in the anterior, middle and posterior cerebral arteries. The vertebrobasilar system, superior cerebellar arteries and hemispheres cerebellar arteries shows normal blood flow. There is normal blood flow in the dural sinuses and cerebral veins. No abnormalities are seen in the parotid glands or submandibular glands. Sternocleidomastoid muscles are symmetric. Masseter and pterygoid muscles show no abnormalities. No abnormalities seen of the epiglottis. The vallecula and piriform sinuses are symmetric. Vocal cords are symmetric. No abnormality seen in thyroid gland. The vertebral arteries bilaterally are patent. There is some mild narrowing at the origin of the left vertebral artery. There is some plaque at the carotid bifurcations but no evidence of a significant carotid stenosis. There appears to be normal blood flow to her veins. IMPRESSION: Mucosal disease in the paranasal sinuses with bilateral fluid levels in the maxillary antra. No acute intracranial abnormality seen. No intracranial vascular abnormality evident. Mild narrowing at the origin of the left vertebral artery. No hemodynamically significant stenosis in the carotid arterial systems. Stenosis calculations for CT angiography are based upon measurements of the distal ICA diameter in accordance with the NASCET methodology. Electronically signed by: Leatha Montoya MD (10/26/2016 5:51 AM)
[2016-10-26 05:56] VITALS: BP 144/80
--- NOTE | 2016-10-26 08:42 | EKG ---
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
== END 2016-10-26 06:19 | disposition home or self-care (01) ==
LOC: ER 03:42
DX: R51 Headache (principal); I10 Essential (primary) hypertension; R42 Dizziness and giddiness; F31.9 Bipolar disorder, unspecified; F10.10 Alcohol abuse, uncomplicated; Z90.49 Acquired absence of other specified parts of digestive tract
CPT/HCPCS: 36415; 70496; 70498; 80048; 80320; 85027; 93005; 96361; 96374; 96375; 99285; J2765; J3010; J7030; Q9967; G0480

== ENCOUNTER 2017-03-28 11:43 | Emergency (ER) | payer MEDICARE, OTHER ==
[~2017-03-28] VITALS: Ht 185.4 cm; Wt 92.5 kg
[2017-03-28 12:23] LABS: BASO % 1 % (0-3); EOS % 1 % (0-3); HEMATOCRIT 34.1 % (39.0-53.0); HEMOGLOBIN 10.9 g/dL (13.0-17.5); LYMPH # 1.4 x10^3/uL (1.0-4.8); LYMPH % 29 % (24-48); MEAN CORPUSCULAR HEMOGLOBIN 25 pg (25-35); MEAN CORPUSCULAR HGB CONC 32 g/dL (31-37); MEAN CORPUSCULAR VOLUME 77 fL (79-100); MONO % 10 % (0-9); NEUT % 60 % (31-73); PLATELET COUNT 157 x10^3/uL (140-400); RED BLOOD COUNT 4.44 x10^6/uL (4.30-5.70); RED CELL DISTRIBUTION WIDTH 20.8 % (11.5-14.5)
[2017-03-28 12:27] LABS: BILIRUBIN,URINE NEGATIVE (NEG); GLUCOSE,URINE NEGATIVE (NEG); NITRITE,URINE NEGATIVE (NEG); PROTEIN,URINE NEGATIVE (NEG-TRACE)
[2017-03-28 12:38] LABS: CALCIUM 9.7 mg/dL (8.5-10.1); CREATININE 1.1 mg/dL (0.7-1.3); GFR 82.6; POTASSIUM 4.2 mmol/L (3.5-5.1)
[2017-03-28 12:43] LABS: ALBUMIN/GLOBULIN RATIO 0.9 (1.0-1.7); TOTAL BILIRUBIN 0.7 mg/dL (0.2-1.0); TOTAL PROTEIN 8.3 g/dL (6.4-8.2)
[2017-03-28] MEDS: KETOROLAC 30 MG/ML INJ. IV ONE (12:44)
[2017-03-28] MEDS: IV NORMAL SALINE 1000ML BAG 1,000 ML IV ONE (12:45)
[2017-03-28 12:50] LABS: CKMB MASS 0.5 ng/mL (0.0-3.6)
--- NOTE | 2017-03-28 12:52 | PHYS DOC ---
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 Patient has no specific complaints but does agree to positive complaints of every question asked of him. He reports a history of alcoholism, tobacco abuse. He denies drug use. Review of Systems Review of Systems Constitutional: Denies fever or chills [] Eyes: Denies change in visual acuity, redness, or eye pain [] HENT: Denies nasal congestion or sore throat [] Respiratory: Denies cough or shortness of breath [] Cardiovascular: No additional information not addressed in HPI [] GI: Denies abdominal pain, nausea, vomiting, bloody stools or diarrhea [] : Denies dysuria or hematuria [] Musculoskeletal: Denies back pain or joint pain [] Integument: Denies rash or skin lesions [] Neurologic: Denies headache, focal weakness or sensory changes [] Endocrine: Denies polyuria or polydipsia [] Current Medications Current Medications Current Medications Medications (Trade) Dose Ordered Sig/Julio César Start Time Stop Time Status Last Admin Dose Admin Ketorolac Tromethamine (Toradol) 30 mg 1X ONCE 03/28/17 12:15 03/28/17 12:16 DC 03/28/17 12:44 30 MG Sodium Chloride 1,000 ml @ 1,000 mls/hr 1X ONCE 03/28/17 12:15 03/28/17 13:14 DC 03/28/17 12:45 1,000 MLS/HR Allergies Allergies Allergies Coded Allergies Type Severity Reaction Last Updated Verified No Known Drug Allergies 02/03/16 No Physical Exam Physical Exam Constitutional: Well developed, well nourished, no acute distress, non-toxic appearance. [] HENT: Normocephalic, atraumatic, bilateral external ears normal, oropharynx moist, no oral exudates, nose normal. [] Eyes: PERRLA, EOMI, conjunctiva normal, no discharge. [] Neck: Normal range of motion, no tenderness, supple, no stridor. [] Cardiovascular:Heart rate regular rhythm, no murmur [] Lungs & Thorax: Bilateral breath sounds clear to auscultation [] Abdomen: Bowel sounds normal, soft, no tenderness, no masses, no pulsatile masses. [] Skin: Warm, dry, no erythema, no rash. [] Back: No tenderness, no CVA tenderness. [] Extremities: No tenderness, no cyanosis, no clubbing, ROM intact, no edema. [] Neurologic: Alert and oriented X 3, normal motor function, normal sensory function, no focal deficits noted. Emergency over grossly intact [] Psychologic: Affect normal, judgement normal, mood normal. [] Current Patient Data Vital Signs Vital Signs Date Time Temp Pulse Resp B/P (MAP) Pulse Ox O2 Delivery O2 Flow Rate FiO2 03/28/17 12:25 98.0 104 18 135/90 (105) 100 Room Air 98.0 Lab Values Laboratory Tests Test 03/28/17 12:05 03/28/17 12:20 03/28/17 12:38 White Blood Count 5.0 x10^3/uL (4.0-11.0) Red Blood Count 4.44 x10^6/uL (4.30-5.70) Hemoglobin 10.9 g/dL (13.0-17.5) L Hematocrit 34.1 % (39.0-53.0) L Mean Corpuscular Volume 77 fL (79-100) L Mean Corpuscular Hemoglobin 25 pg (25-35) Mean Corpuscular Hemoglobin Concent 32 g/dL (31-37) Red Cell Distribution Width 20.8 % (11.5-14.5) H Platelet Count 157 x10^3/uL (140-400) Neutrophils (%) (Auto) 60 % (31-73) Lymphocytes (%) (Auto) 29 % (24-48) Monocytes (%) (Auto) 10 % (0-9) H Eosinophils (%) (Auto) 1 % (0-3) Basophils (%) (Auto) 1 % (0-3) Neutrophils # (Auto) 3.0 x10^3uL (1.8-7.7) Lymphocytes # (Auto) 1.4 x10^3/uL (1.0-4.8) Monocytes # (Auto) 0.5 x10^3/uL (0.0-1.1) Eosinophils # (Auto) 0.1 x10^3/uL (0.0-0.7) Basophils # (Auto) 0.0 x10^3/uL (0.0-0.2) Platelet Estimate Pending Sodium Level 133 mmol/L (136-145) L Potassium Level 4.2 mmol/L (3.5-5.1) Chloride Level 98 mmol/L (98-107) Carbon Dioxide Level 22 mmol/L (21-32) Anion Gap 13 (6-14) Blood Urea Nitrogen 9 mg/dL (8-26) Creatinine 1.1 mg/dL (0.7-1.3) Estimated GFR (Cockcroft-Gault) 82.6 BUN/Creatinine Ratio 8 (6-20) Glucose Level 99 mg/dL (70-99) Calcium Level 9.7 mg/dL (8.5-10.1) Total Bilirubin 0.7 mg/dL (0.2-1.0) Aspartate Amino Transferase (AST) 39 U/L (15-37) H Alanine Aminotransferase (ALT) 30 U/L (16-63) Alkaline Phosphatase 90 U/L (46-116) Creatine Kinase 221 U/L (39-308) Creatine Kinase MB (Mass) 0.5 ng/mL (0.0-3.6) Creatine Kinase MB Relative Index 0.2 % (0-4) Troponin I Quantitative < 0.017 ng/mL (0.000-0.055) Total Protein 8.3 g/dL (6.4-8.2) H Albumin 4.0 g/dL (3.4-5.0) Albumin/Globulin Ratio 0.9 (1.0-1.7) L Ethyl Alcohol Level < 10 mg/dL (0-10) Urine Collection Type Unknown Urine Color Yellow Urine Clarity Clear Urine pH 6.0 Urine Specific Keller <=1.005 Urine Protein Negative mg/dL (NEG-TRACE) Urine Glucose (UA) Negative mg/dL (NEG) Urine Ketones (Stick) Negative mg/dL (NEG) Urine Blood Negative (NEG) Urine Nitrite Negative (NEG) Urine Bilirubin Negative (NEG) Urine Urobilinogen Dipstick 1.0 mg/dL (0.2 mg/dL) Urine Leukocyte Esterase Negative (NEG) Urine RBC Rare /HPF (0-2) Urine WBC Rare /HPF (0-4) Urine Squamous Epithelial Cells Few /LPF Urine Bacteria Few /HPF (0-FEW) Influenza Type A Antigen Negative (NEGATIVE) Influenza Type B Antigen Negative (NEGATIVE) Laboratory Tests 03/28/17 12:05 Laboratory Tests 03/28/17 12:05 EKG EKG 1213: Affect J reviewed by Dr. Perfecto Forbes, non STEMI[] Radiology/Procedures Radiology/Procedures Chest PA and lateral reviewed by Dr. Cooper, radiologist, no acute changes[] Course & Med Decision Making Course & Med Decision Making Pertinent Labs and Imaging studies reviewed. (See chart for details) [] Dragon Disclaimer Dragon Disclaimer This electronic medical record was generated, in whole or in part, using a voice recognition dictation system. Departure Departure Impression: Primary Impression: Viral syndrome Disposition: 01 HOME, SELF-CARE Condition: STABLE Referrals: Betty RUIZ MD (PCP) Patient Instructions: Viral Syndrome Additional Instructions: Follow-up with your primary care provider in 3-5 days, sooner if problems arise. KSENIA BROCK PARTS COUNTERMAN Mar 28, 2017 12:52
[2017-03-28 12:59] LABS: BACTERIA,URINE FEW /HPF (0-FEW); RBC,URINE RARE /HPF (0-2); SQUAMOUS EPITHELIAL CELL,UR FEW /LPF; WBC,URINE RARE /HPF (0-4)
--- NOTE | 2017-03-28 13:02 | RAD ---
2 view CXR: Clinical indications: General malaise. Burning feeling in the chest and abdomen. Syncope today. Bilateral lower extremity pain. History of hypertension.. Findings: No acute lung infiltrate or pleural effusion or pulmonary edema or lung mass or pneumothorax is seen. The heart size, pulmonary vasculature, mediastinum and both venessa are unremarkable. The osseous structures appear intact. Impression: No acute radiographic abnormality is seen.
[2017-03-28 13:10] LABS: OBC FLU VALID
[2017-03-28 14:06] VITALS: BP 139/85
--- NOTE | 2017-03-28 14:25 | EKG ---
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
[2017-03-28 14:46] LABS: ANISOCYTOSIS MOD; HYPOCHROMIA SLIGHT
[2017-03-28 14:47] LABS: OVALOCYTES OCC
[2017-03-28 15:00] LABS: PLT ESTIMATE ADEQUATE (ADEQUATE)
== END 2017-03-28 14:25 | disposition home or self-care (01) ==
LOC: ER 11:43
DX: B34.9 Viral infection, unspecified (principal); I10 Essential (primary) hypertension; F31.9 Bipolar disorder, unspecified; F10.10 Alcohol abuse, uncomplicated; Z72.0 Tobacco use
CPT/HCPCS: 36415; 71020; 80053; 81001; 82553; 84484; 85025; 87804; 93005; 96361; 96374; G0480; J1885; J7030; 99285-25

== ENCOUNTER 2017-06-28 08:20 | Emergency (ER) | payer MEDICARE, OTHER ==
[2017-06-28 08:44] LABS: ADD MAN DIFF? NO
[2017-06-28 08:48] LABS: BASO % 1 % (0-3); EOS # 0.1 x10^3/uL (0.0-0.7); EOS % 2 % (0-3); HEMATOCRIT 33.3 % (39.0-53.0); HEMOGLOBIN 10.5 g/dL (13.0-17.5); LYMPH # 1.2 x10^3/uL (1.0-4.8); LYMPH % 25 % (24-48); MEAN CORPUSCULAR HEMOGLOBIN 25 pg (25-35); MEAN CORPUSCULAR HGB CONC 32 g/dL (31-37); MEAN CORPUSCULAR VOLUME 80 fL (79-100); MONO # 0.5 x10^3/uL (0.0-1.1); MONO % 10 % (0-9); NEUT # 3.1 x10^3uL (1.8-7.7); NEUT % 63 % (31-73); PLATELET COUNT 208 x10^3/uL (140-400); RED BLOOD COUNT 4.18 x10^6/uL (4.30-5.70); RED CELL DISTRIBUTION WIDTH 20.9 % (11.5-14.5); WHITE BLOOD COUNT 4.8 x10^3/uL (4.0-11.0)
[2017-06-28 09:06] LABS: ANION GAP 13 (6-14); BLOOD UREA NITROGEN 11 mg/dL (8-26); CALCIUM 9.4 mg/dL (8.5-10.1); CARBON DIOXIDE 24 mmol/L (21-32); CHLORIDE 97 mmol/L (98-107); CREATININE 1.2 mg/dL (0.7-1.3); GFR 74.7; GLUCOSE 121 mg/dL (70-99); POTASSIUM 4.5 mmol/L (3.5-5.1); SODIUM 134 mmol/L (136-145)
[2017-06-28 09:12] LABS: INR 1.3 (0.8-1.1); PROTHROMBIN TIME PATIENT 15.6 SEC (11.7-14.0)
[2017-06-28 09:13] LABS: TROPONINI < 0.017 ng/mL (0.000-0.055)
[2017-06-28 09:14] LABS: THYROID STIM HORMONE (TSH) 1.826 uIU/mL (0.358-3.74)
[2017-06-28 09:14] LABS: ALBUMIN 3.8 g/dL (3.4-5.0); ALK PHOS 91 U/L (46-116); ALT (SGPT) 30 U/L (16-63); AST (SGOT) 48 U/L (15-37); DIRECT BILIRUBIN 0.1 mg/dL (0.0-0.2); LIPASE 101 U/L (73-393); TOTAL BILIRUBIN 0.7 mg/dL (0.2-1.0); TOTAL PROTEIN 8.3 g/dL (6.4-8.2)
[2017-06-28 09:18] LABS: NT-PRO BNP 12 pg/mL (0-124)
[2017-06-28 09:18] LABS: CKMB INDEX 0.3 % (0-4); CKMB MASS 0.8 ng/mL (0.0-3.6); CREATINE KINASE 292 U/L (39-308)
[2017-06-28] MEDS: IV NORMAL SALINE 1000ML BAG 1,000 ML IV ×2 (09:32)
[2017-06-28 09:44] LABS: ANISOCYTOSIS PRESENT; MICROCYTOSIS PRESENT; POLYCHROMASIA PRESENT
[2017-06-28 09:48] LABS: ETHANOL < 10 mg/dL (0-10)
[2017-06-28 10:20] LABS: BILIRUBIN,URINE NEGATIVE (NEG); CLARITY,URINE CLEAR; COLOR,URINE YELLOW; GLUCOSE,URINE NEGATIVE (NEG); NITRITE,URINE POSITIVE (NEG); PROTEIN,URINE NEGATIVE (NEG-TRACE)
[2017-06-28 10:27] LABS: BARBITURATES NEG (NEG); BENZODIAZEPINES NEG (NEG); CANNABINOIDS NEG (NEG); COCAINE NEG (NEG); METHADONE NEG (NEG); OPIATES NEG (NEG); PHENCYCLIDINE NEG (NEG)
[2017-06-28 10:28] LABS: AMPHETAMINE/METHAMPHETAMINE NEG (NEG); ETHANOL, URINE NEG (NEG)
[2017-06-28 10:36] LABS: RBC,URINE 0 /HPF (0-2)
[2017-06-28 10:37] LABS: BACTERIA,URINE MODERATE /HPF (0-FEW); SQUAMOUS EPITHELIAL CELL,UR OCC /LPF
[2017-06-28 12:56] LABS: PLT ESTIMATE ADEQUATE (ADEQUATE)
[2017-06-28 13:18] LABS: TROPONINI < 0.017 ng/mL (0.000-0.055)
[2017-06-28 13:22] LABS: CKMB INDEX 0.4 % (0-4); CKMB MASS 0.8 ng/mL (0.0-3.6); CREATINE KINASE 210 U/L (39-308)
== END 2017-06-28 13:36 | disposition home or self-care (01) ==
LOC: ER 08:20
DX: N30.00 Acute cystitis without hematuria (principal); R42 Dizziness and giddiness; I10 Essential (primary) hypertension
CPT/HCPCS: 36415; 70450; 71045; 80048; 80076; 80307; 81001; 82553; 83690; 83735; 83880; 84443; 84484; 85025; 85610; 87086; 87186; 93005; 96361; 96365; 99285-25; G0480; J0690; J7030

== ENCOUNTER 2017-10-30 20:02 | Emergency (ER) | payer MEDICARE, OTHER ==
[2017-10-30] MEDS: IV NORMAL SALINE 1000ML BAG 1,000 ML IV ×2 (20:15→22:00)
[2017-10-30 20:41] LABS: ADD MAN DIFF? NO
[2017-10-30 20:51] LABS: BASO % 1 % (0-3); EOS # 0.1 x10^3/uL (0.0-0.7); EOS % 2 % (0-3); HEMATOCRIT 29.2 % (39.0-53.0); HEMOGLOBIN 9.3 g/dL (13.0-17.5); LYMPH # 1.8 x10^3/uL (1.0-4.8); LYMPH % 38 % (24-48); MEAN CORPUSCULAR HEMOGLOBIN 24 pg (25-35); MEAN CORPUSCULAR HGB CONC 32 g/dL (31-37); MEAN CORPUSCULAR VOLUME 75 fL (79-100); MONO # 0.4 x10^3/uL (0.0-1.1); MONO % 10 % (0-9); NEUT # 2.3 x10^3uL (1.8-7.7); NEUT % 50 % (31-73); PLATELET COUNT 137 x10^3/uL (140-400); RED BLOOD COUNT 3.89 x10^6/uL (4.30-5.70); RED CELL DISTRIBUTION WIDTH 21.8 % (11.5-14.5); WHITE BLOOD COUNT 4.7 x10^3/uL (4.0-11.0)
[2017-10-30 20:53] LABS: ANION GAP 13 (6-14); BLOOD UREA NITROGEN 9 mg/dL (8-26); CALCIUM 8.8 mg/dL (8.5-10.1); CARBON DIOXIDE 22 mmol/L (21-32); CHLORIDE 95 mmol/L (98-107); GFR 91.9; GLUCOSE 86 mg/dL (70-99); POTASSIUM 4.1 mmol/L (3.5-5.1); SODIUM 130 mmol/L (136-145)
[2017-10-30 20:59] LABS: CREATINE KINASE 277 U/L (39-308); MAGNESIUM 2.2 mg/dL (1.8-2.4)
[2017-10-30 21:10] LABS: BILIRUBIN,URINE NEGATIVE (NEG); COLOR,URINE YELLOW; GLUCOSE,URINE NEGATIVE (NEG); NITRITE,URINE NEGATIVE (NEG); PROTEIN,URINE NEGATIVE (NEG-TRACE)
[2017-10-30 21:18] LABS: BACTERIA,URINE 0 /HPF (0-FEW); CLARITY,URINE HAZY; RBC,URINE 0 /HPF (0-2); SQUAMOUS EPITHELIAL CELL,UR FEW /LPF; WBC,URINE OCC /HPF (0-4)
[2017-10-30 21:32] LABS: PLT ESTIMATE DECREASED (ADEQUATE); POLYCHROMASIA SLIGHT
[2017-10-30 21:33] LABS: MICROCYTOSIS SLIGHT; OVALOCYTES OCC; TARGET CELLS OCC
[2017-10-30] MEDS: fentaNYL PF VIAL 100 MCG/2 ML VIAL IV (23:00)
== END 2017-10-30 23:20 | disposition home or self-care (01) ==
LOC: ER 20:02
DX: M79.1 Myalgia (principal); R25.2 Cramp and spasm; R10.84 Generalized abdominal pain; F31.9 Bipolar disorder, unspecified; I10 Essential (primary) hypertension; Z90.49 Acquired absence of other specified parts of digestive tract; F10.10 Alcohol abuse, uncomplicated
CPT/HCPCS: 36415; 80048; 81001; 82550; 83735; 85025; 96361; 96374; 99284-25; J3010; J7030